=== PATIENT | female | born 1965 | race African-American/Black ===

== ENCOUNTER 2022-08-22 06:27 | Emergency (ER) | payer MEDICAID ==
[~2022-08-22] VITALS: Ht 162.6 cm; Wt 57.0 kg
[2022-08-22] MEDS ORDERED: LEVETIRACETAM 1000MG PREMIX 100 ML IV ONE (06:45)
[2022-08-22 08:16] LABS: BASOPHILS % 0.7 % (0.0-2.0); EOSINOPHILS % 2.5 % (0.0-5.0); HEMATOCRIT. 34.4 % (36.0-48.0); HEMOGLOBIN. 11.6 g/dL (12.0-16.0); MEAN CORPUSCULAR HEMOGLOBIN 28.4 pg (28.0-32.0); MEAN CORPUSCULAR VOLUME 84.5 fL (81.0-99.0); NEUTROPHILS % 64.8 % (40.0-76.0); PLATELET 257 x1000/uL (130-400); RED BLOOD CELL COUNT 4.07 mill/uL (4.2-5.4); RED CELL DISTRIBUTION WIDTH 16.3 % (11.6-14.6)
[2022-08-22 08:22] LABS: CHLORIDE 102 mEq/L (98-107)
[2022-08-22 08:30] LABS: ETHANOL BLOOD < 10 mg/dL
[2022-08-22] MEDS ORDERED: ACETAMINOPHEN WITH CODEINE 300/30MG TABLET PO ONE (09:15)
[2022-08-22 09:28] VITALS: BP 173/99
[2022-08-22] MEDS ORDERED: KEPP500 MT (09:52)
== END 2022-08-22 10:28 | disposition home or self-care (01) ==
LOC: ER 06:27
DX: G40.909 Epilepsy, unspecified, not intractable, without status epilepticus (principal); R53.1 Weakness; R42 Dizziness and giddiness; I10 Essential (primary) hypertension
CPT/HCPCS: 36415; 80053; 80320; 85025; 96365; 99284; J1953; Z7610; G0480

== ENCOUNTER 2022-09-07 09:58 | Inpatient (IN) | payer MEDICAID, OTHER ==
[~2022-09-07] VITALS: Ht 170.2 cm; Wt 61.5 kg
[~2022-09-07 09:58] MED LIST: KEPP500 MT
[2022-09-07] MEDS ORDERED: CARVEDILOL 6.25 MG TABLET PO ONE (10:30)
[2022-09-07] MEDS ORDERED: LEVETIRACETAM 500MG PREMIX 100 ML IV ONE (10:30)
[2022-09-07] MEDS ORDERED: CLONIDINE 0.3MG TABLET PO ONE (10:30)
[2022-09-07] MEDS ORDERED: ACETAMINOPHEN 325MG TABLET PO ONE (11:30)
[2022-09-07 11:36] LABS: BASOPHILS % 0.7 % (0.0-2.0); EOSINOPHILS % 0.4 % (0.0-5.0); HEMATOCRIT. 39.8 % (36.0-48.0); HEMOGLOBIN. 13.3 g/dL (12.0-16.0); MEAN CORPUSCULAR HEMOGLOBIN 28.4 pg (28.0-32.0); MEAN CORPUSCULAR VOLUME 85.1 fL (81.0-99.0); MEAN PLATELET VOLUME 7.4 fl (7.4-10.4); MONOCYTES % 5.3 % (2.0-8.0); NEUTROPHILS % 82.6 % (40.0-76.0); PLATELET 348 x1000/uL (130-400); RED BLOOD CELL COUNT 4.67 mill/uL (4.2-5.4); RED CELL DISTRIBUTION WIDTH 16.5 % (11.6-14.6)
[2022-09-07 11:44] LABS: CHLORIDE 104 mEq/L (98-107)
[2022-09-07] MEDS ORDERED: ASPIRIN 325MG TABLET PO ONE (12:15)
[2022-09-07 14:55] LABS: CLARITY URINE CLEAR (CLEAR); COLOR URINE YELLOW (YELLOW); KETONES URINE NEGATIVE (NEGATIVE); LEUKOCYTE ESTERASE URINE NEGATIVE (NEGATIVE); NITRITE URINE NEGATIVE (NEGATIVE); OCCULT BLOOD URINE NEGATIVE (NEGATIVE); PROTEIN URINE 2+ (NEGATIVE); SPECIFIC GRAVITY URINE 1.015 (1.005-1.030); UROBILINOGEN URINE 0.2 E.U./dL (0.2-1.0)
[2022-09-07] MEDS ORDERED: LORAZEPAM 0.5MG TABLET PO PRN (15:15)
[2022-09-07] MEDS ORDERED: GUAIFENESIN 200MG/10ML SUGAR FREE UDC PO PRN (15:15)
[2022-09-07] MEDS ORDERED: NA PHOS,M-B/NA PHOS,DI-BA ENEMA 118ML PR PRN (15:15)
[2022-09-07] MEDS ORDERED: IPRATROPIUM/ALBUTEROL 0.5-3(2.5)MG/3ML NEB HHN PRN (15:15)
[2022-09-07] MEDS ORDERED: HYDRALAZINE 20MG/ML VIAL IV ONE (15:15)
[2022-09-07] MEDS ORDERED: ONDANSETRON HCL 4MG/2ML INJ IV PRN (15:15)
[2022-09-07 15:23] LABS: *AMPHETAMINES SCREEN URINE NEGATIVE (NEGATIVE); *BARBITURATES SCREEN URINE NEGATIVE (NEGATIVE); *BENZODIAZEPINES SCREEN URINE NEGATIVE (NEGATIVE); *COCAINE SCREEN URINE NEGATIVE (NEGATIVE); CANNABINOID URINE SCREEN PRESUMTIVE POSITIVE (NEGATIVE); METHADONE URINE SCREEN NEGATIVE (NEGATIVE); OPIATES URINE SCREEN NEGATIVE (NEGATIVE); PHENCYCLIDINE URINE SCREEN NEGATIVE (NEGATIVE)
[2022-09-07] MEDS ORDERED: NITROGLYCERIN 0.4MG TABLET SL SL PRN (15:30)
[2022-09-07] MEDS ORDERED: DOCUSATE SODIUM SUGAR FREE 100MG/10ML UDC NG PRN ×2 (15:30→15:45)
[2022-09-07] MEDS: ACETAMINOPHEN 325MG TABLET PO PRN (16:54)
[2022-09-07] MEDS: CLONIDINE 0.1MG TABLET PO PRN (16:55)
[2022-09-07] MEDS: ENOXAPARIN 40MG/0.4ML SYR SUBCUT SCH (16:55)
[2022-09-07 17:30] VITALS: BP 171/87
[2022-09-07 18:00] VITALS: BP 187/111
[2022-09-07 18:11] LABS: CREATINE KINASE 303 IU/L (26-192)
[2022-09-07 18:19] VITALS: BP 143/97
[2022-09-07] MEDS: AMLODIPINE 10MG TABLET PO SCH (18:43)
[2022-09-07] MEDS: NITROGLYCERIN OINT 1GM/INCH UDPKT TD SCH ×2 (18:43→21:16)
[2022-09-07] MEDS: CARVEDILOL 3.125 MG TABLET PO SCH (21:16)
[2022-09-07] MEDS: FAMOTIDINE 20MG TABLET PO SCH (21:16)
[2022-09-07] MEDS: LEVETIRACETAM 500MG TABLET PO SCH (21:16)
[2022-09-07 22:16] VITALS: BP 145/91
[2022-09-07] MEDS: ZOLPIDEM TARTRATE 5MG TABLET PO PRN (22:36)
[2022-09-08 00:04] VITALS: BP 153/84
[2022-09-08 04:07] VITALS: BP 176/98
[2022-09-08] MEDS: CLONIDINE 0.1MG TABLET PO PRN ×2 (04:19→19:49)
[2022-09-08] MEDS: NITROGLYCERIN OINT 1GM/INCH UDPKT TD SCH ×3 (06:19→21:26)
[2022-09-08 07:06] LABS: BASOPHILS % 0.9 % (0.0-2.0); EOSINOPHILS % 1.8 % (0.0-5.0); HEMATOCRIT. 36.6 % (36.0-48.0); HEMOGLOBIN. 12.3 g/dL (12.0-16.0); LYMPHOCYTES % 22.1 % (20.0-50.0); MEAN CORPUSCULAR HEMOGLOBIN 28.1 pg (28.0-32.0); MEAN CORPUSCULAR VOLUME 83.6 fL (81.0-99.0); MONOCYTES % 5.3 % (2.0-8.0); NEUTROPHILS % 69.9 % (40.0-76.0); RED BLOOD CELL COUNT 4.37 mill/uL (4.2-5.4)
[2022-09-08 07:10] LABS: FERRITIN 15 ng/mL (10-291)
[2022-09-08 07:21] LABS: CHLORIDE 103 mEq/L (98-107)
[2022-09-08 07:58] LABS: HDL CHOLESTEROL 86 mg/dL (40-59); LDL CHOLESTEROL 129 mg/dL (5-100); PHOSPHORUS 4.2 mg/dL (2.5-4.9); T4 FREE 0.85 ng/dL (0.76-1.46); TOTAL IRON BINDING CAPACITY 465 ug/dL (250-450)
[2022-09-08 07:59] LABS: VITAMIN B12 SERUM 271 pg/mL (211-911)
[2022-09-08 08:00] VITALS: BP 144/100
[2022-09-08 08:18] LABS: MEAN PLATELET VOLUME 8.1 fl (7.4-10.4)
[2022-09-08 08:19] LABS: PLATELET 301 x1000/uL (130-400)
[2022-09-08] MEDS: AMLODIPINE 10MG TABLET PO SCH (08:29)
[2022-09-08] MEDS: CARVEDILOL 3.125 MG TABLET PO SCH ×2 (08:29→20:25)
[2022-09-08] MEDS: LEVETIRACETAM 500MG TABLET PO SCH ×2 (08:29→20:25)
[2022-09-08] MEDS: ASPIRIN 325MG EC TABLET PO SCH (08:29)
[2022-09-08 12:00] VITALS: BP 148/99
[2022-09-08] MEDS: DIPHENHYDRAMINE 25MG CAPSULE PO PRN (14:33)
[2022-09-08 16:00] VITALS: BP 140/117
[2022-09-08] MEDS: ENOXAPARIN 40MG/0.4ML SYR SUBCUT SCH (17:39)
[2022-09-08] MEDS: KETOROLAC 15MG/ML VIAL IV PRN ×2 (18:27→23:50)
[2022-09-08] MEDS: FUROSEMIDE 20MG TABLET PO SCH (19:49)
[2022-09-08 20:00] VITALS: BP 165/98
[2022-09-08] MEDS: ZOLPIDEM TARTRATE 5MG TABLET PO PRN (20:25)
[2022-09-08] MEDS: FAMOTIDINE 20MG TABLET PO SCH (20:25)
[2022-09-09] VITALS: BP 162/90
[2022-09-09] MEDS: CLONIDINE 0.1MG TABLET PO PRN (02:52)
[2022-09-09] MEDS: NITROGLYCERIN OINT 1GM/INCH UDPKT TD SCH ×3 (05:37→21:22)
[2022-09-09 06:38] LABS: HEMOGLOBIN 12.5 g/dL (12.0-16.0); MEAN CORPUSCULAR HEMOGLOBIN 28.3 pg (28.0-32.0); MEAN CORPUSCULAR VOLUME 84.1 fL (81.0-99.0); PLATELET 272 x1000/uL (130-400)
[2022-09-09 08:00] VITALS: BP 144/89
[2022-09-09] MEDS: ASPIRIN 325MG EC TABLET PO SCH (09:26)
[2022-09-09] MEDS: CARVEDILOL 6.25 MG TABLET PO SCH ×2 (09:27→21:16)
[2022-09-09] MEDS: AMLODIPINE 10MG TABLET PO SCH (09:27)
[2022-09-09] MEDS: LEVETIRACETAM 500MG TABLET PO SCH ×2 (09:27→21:14)
[2022-09-09] MEDS: FUROSEMIDE 20MG TABLET PO SCH (09:27)
[2022-09-09 10:59] LABS: CHLORIDE 104 mEq/L (98-107)
[2022-09-09 11:03] LABS: PHOSPHORUS 5.1 mg/dL (2.5-4.9)
[2022-09-09 12:00] VITALS: BP 164/105
[2022-09-09] MEDS: ACETAMINOPHEN 325MG TABLET PO PRN (13:40)
[2022-09-09] MEDS: KETOROLAC 15MG/ML VIAL IV PRN (14:53)
[2022-09-09 16:00] VITALS: BP 151/91
[2022-09-09] MEDS: ENOXAPARIN 40MG/0.4ML SYR SUBCUT SCH (16:49)
[2022-09-09] MEDS ORDERED: ATORVASTATIN CALCIUM 40MG TABLET PO SCH (21:00)
[2022-09-09] MEDS: FAMOTIDINE 20MG TABLET PO SCH (21:14)
[2022-09-09] MEDS: ZOLPIDEM TARTRATE 5MG TABLET PO PRN (21:21)
[2022-09-10] MEDS: CLONIDINE 0.1MG TABLET PO PRN ×2 (00:29→13:51)
[2022-09-10 04:00] VITALS: BP 145/100
[2022-09-10] MEDS: NITROGLYCERIN OINT 1GM/INCH UDPKT TD SCH (05:16)
[2022-09-10 08:00] VITALS: BP 167/98
[2022-09-10 08:35] LABS: HEMATOCRIT 37.3 % (36.0-48.0); HEMOGLOBIN 12.6 g/dL (12.0-16.0); MEAN CORPUSCULAR HEMOGLOBIN 28.3 pg (28.0-32.0); MEAN CORPUSCULAR VOLUME 83.6 fL (81.0-99.0); PLATELET 320 x1000/uL (130-400); RED BLOOD CELL COUNT 4.46 mill/uL (4.2-5.4); RED CELL DISTRIBUTION WIDTH 15.6 % (11.6-14.6)
[2022-09-10 09:02] LABS: CHLORIDE 104 mEq/L (98-107)
[2022-09-10 09:17] LABS: PHOSPHORUS 4.3 mg/dL (2.5-4.9)
[2022-09-10] MEDS: FUROSEMIDE 20MG TABLET PO SCH (09:42)
[2022-09-10] MEDS: AMLODIPINE 10MG TABLET PO SCH (09:42)
[2022-09-10] MEDS: LEVETIRACETAM 500MG TABLET PO SCH (09:42)
[2022-09-10] MEDS: CARVEDILOL 6.25 MG TABLET PO SCH (09:42)
[2022-09-10] MEDS: ASPIRIN 325MG EC TABLET PO SCH (09:42)
[2022-09-10] MEDS: DIPHENHYDRAMINE 25MG CAPSULE PO PRN (09:46)
[2022-09-10] MEDS: KETOROLAC 15MG/ML VIAL IV PRN (10:33)
[2022-09-10] MEDS ORDERED: HALOPERIDOL 5MG TABLET PO SCH (11:30)
[2022-09-10 12:00] VITALS: BP 160/114
[2022-09-10] MEDS: ACETAMINOPHEN 325MG TABLET PO PRN (12:53)
[2022-09-10 14:11] VITALS: BP 168/98
[2022-09-10] MEDS ORDERED: BENZTROPINE MESYLATE 0.5MG TABLET PO SCH (21:00)
== END 2022-09-10 17:00 | disposition home or self-care (01) | DRG 53 ==
LOC: ER 09:58 → EDBEDREQ 12:17 → 3WST 13:49 → EDBEDREQ 13:53 → EDBEDREQTM 13:53 → ENRESERV 14:02
PROVIDERS: ADMIT Internal Medicine; ATTEND Internal Medicine
DX: G40.509 Epileptic seizures related to external causes, not intractable, without status epilepticus (principal); F17.210 Nicotine dependence, cigarettes, uncomplicated; I16.1 Hypertensive emergency; F31.9 Bipolar disorder, unspecified; I10 Essential (primary) hypertension; F20.9 Schizophrenia, unspecified; Z59.00 Homelessness unspecified; Z90.710 Acquired absence of both cervix and uterus; Z79.899 Other long term (current) drug therapy; Z91.14 Patient's other noncompliance with medication regimen; Z91.199 Patient's noncompliance with other medical treatment and regimen due to unspecified reason; Z98.891 History of uterine scar from previous surgery; Z82.49 Family history of ischemic heart disease and other diseases of the circulatory system
CPT/HCPCS: 36415; 71045; 80048; 80053; 80061; 80305; 81003; 82542; 82550; 82607; 82728; 82746; 83036; 83540; 83550; 83735; 84100; 84439; 84443; 84484; 85025; 85027; 93005; 97162; 99285; J0360; J1630; J1650; J1885; J1953; Q0163